=== PATIENT | female | born 1960 | race African-American/Black ===

== ENCOUNTER 2017-06-06 10:06 | Emergency (ER) | payer OTHER ==
[~2017-06-06] VITALS: Ht 170.2 cm; Wt 81.0 kg
[~2017-06-06 10:06] MED LIST: HYDR25TA4 PO
[2017-06-06 10:12] VITALS: TEMP 36.8; Ht 170.2 cm; Wt 81.0 kg
--- NOTE | 2017-06-06 11:08 | EMERGENCY ROOM VISIT NOTE ---
ED Visit Note First contact with patient: 10:53 CHIEF COMPLAINT: Left ear clogged HISTORY OF PRESENT ILLNESS: This 57-year-old female presents the ER with chief complain her left ear being clogged. The patient states that she was to see her PCP today for ear irrigation but they called her to cancel appointment since her doctor is out with the flu. The patient states that she has been using the wax softener drops for the past few days. The patient denies any ear pain. She states she just can't hear out of the left ear REVIEW OF SYSTEMS: 3 system review was performed and was negative unless stated otherwise in history of present illness. PMH: The patient is healthy; diabetes, hypertension SOCIAL HISTORY: Patient lives with her daughter. The patient denies any tobacco or alcohol use. PHYSICAL EXAM: Vital Signs: Were reviewed Reviewed Nurse's notes. GENERAL: 57- year-old female appears in no acute distress. MENTAL Status: Alert and oriented 3. EARS: Right canal clear. TMs good light reflex. Left canal with cerumen unable to visualize TM. EMERGENCY DEPARTMENT COURSE: The cerumen was removed with tap water irrigation delivered by an irrigating syringe. Following this the ear canals were seen to be slightly erythematous but the tympanic membranes were clear and not inflamed. DIAGNOSIS: Cerumen impaction of the left ear canal DISCHARGE INSTRUCTIONS & TREATMENT: Wash the ear canals frequently with water when you bathe in the future. Current/Historical Medications Scheduled Hydrochlorothiazide (Hctz), 25 MG PO DAILY Allergies Coded Allergies: No Known Allergies (Unverified , 12/18/15) Vital Signs Date Time Temp Pulse Resp B/P (MAP) Pulse Ox O2 Delivery O2 Flow Rate FiO2 06/06/17 10:12 36.8 87 18 136/88 96 Departure Information Referrals No Doctor, Assigned (PCP) Patient Instructions [facility]
[2017-06-06 11:14] VITALS: BP 131/81; PULSE 85; O2SAT 97
== END 2017-06-06 11:12 | disposition home or self-care (01) ==
LOC: C.EDB 10:07 → C.EDD 11:12
DX: H61.22 Impacted cerumen, left ear (principal); E11.9 Type 2 diabetes mellitus without complications; I10 Essential (primary) hypertension

== ENCOUNTER 2017-12-24 14:57 | Emergency (ER) | payer OTHER ==
[~2017-12-24] VITALS: Ht 167.6 cm; Wt 81.4 kg
[2017-12-24 15:08] VITALS: TEMP 37; Ht 167.6 cm; Wt 81.4 kg
[2017-12-24] MEDS: KETOROLAC TROMETHAMINE 60 MG/2 ML VIAL IM STA ×2 (15:40→16:16)
[2017-12-24] MEDS ORDERED: LIDODERM (LIDOCAINE) PATCH 5% TD STA (15:40)
[2017-12-24] MEDS ORDERED: ACETAMINOPHEN 500 MG TAB PO STA (16:19)
--- NOTE | 2017-12-24 16:25 | EMERGENCY ROOM VISIT NOTE ---
ED Visit Note First contact with patient: 15:30 CHIEF COMPLAINT: Shoulder pain, right leg pain, fall HISTORY OF PRESENT ILLNESS: This 57-year-old female patient presents to the emergency department, via ambulance, complaining of pain in the right shoulder and right acosta. The patient states she was getting onto the cat a bus when she slipped and fell, striking her right anterior acosta on the stair and injured the right shoulder while using the right arm to brace herself for the fall. There is no limitation of motion of the arm because of the pain, however the patient does have a history of rotator cuff injury and states she has a limited range of motion. Her range of motion is normal for her at this time. The pain is moderate, constant and increases with motion of the hand and arm. The patient states the pain is sharp and 7/10. The patient has taken no medications relief of the pain. No numbness or tingling. The patient also complains of right anterior acosta pain. She states she has been able to ambulate. There is no decreased range of motion of the knee or ankle. There is tenderness to palpation over the mid anterior acosta and medial aspect. The patient denies any previous injury. She denies any open wounds or bleeding. There is been no numbness or tingling of the lower extremity. No neck or back pain. No chest pain or shortness of breath. No abdominal pain or nausea/vomiting. No cough. The patient did not hit her head. REVIEW OF SYSTEMS: A 6 system review of systems was performed with positives and pertinent negatives in the HPI. ALLERGIES: None MEDICATIONS: Meclizine, hydrochlorothiazide PMH: Vertigo, hypertension, prediabetes, reflux SOCIAL HISTORY: The patient lives locally with family. She denies drug, alcohol , tobacco use PHYSICAL EXAM: Vital Signs: Reviewed nurse's notes, vital signs stable. GENERAL : This is a 57-year-old white female, in no acute distress, but appears to be in pain, well-developed, well-nourished. MUSCULOSKELETAL: There is no deformity in the contour of the right shoulder and there are no blair deformities noted. There is no sulcus sign. There is tenderness over the posterior aspect. The patient's range of motion is limited, but she reports this is baseline. Supraspinatus strength 5/5. There is no clavicle tenderness. No tenderness of the humerus, elbow, wrist, or hand. Processing Clerk strength 5/5. Radial pulse 2+. There is tenderness over the mid aspect of the right anterior acosta. There is also tenderness on the medial aspect. There is no obvious contusion or open wound, however there is a small superficial abrasion noted. There is no erythema or significant edema. The patient has full range of motion of the knee and ankle. Strength to resistance is 5/5. Dorsal pedal pulse 2+. NECK: No tenderness to palpation over the cervical spine. Supple, no lymphadenopathy. HEART: Regular rate and rhythm without murmurs gallops or rubs. LUNGS: Clear to auscultation bilaterally without wheezes, rales or rhonchi. No accessory muscle use. No retractions. NEURO: The patient is alert and oriented to person, place, and time. Normal sensation to light and sharp touch. Capillary refill less than 2 seconds. RADIOLOGY: R SHOULDER MIN 2 VIEWS ROUTINE HISTORY: 57 years-old Female right shoulder pain, fall acute right shoulder pain status post fall COMPARISON: None available TECHNIQUE: 3 views of the right shoulder FINDINGS: Mild glenohumeral and AC joint osteoarthritis. Marginal spurring of the acromium. No acute fracture or dislocation is identified. Imaged lung lynch appear clear. IMPRESSION: No acute fracture or dislocation. The above report was generated using voice recognition software. It may contain grammatical, syntax or spelling errors. Electronically signed by: Isac Portillo M.D. 12/24/2017 4:22 PM Dictated Date/Time: 12/24/2017 4:21 PM R TIBIA/FIBULA 2 VIEWS ROUTINE HISTORY: 57 years-old Female right acosta pain, fall acute right lower leg pain status post fall COMPARISON: None available TECHNIQUE: 2 views of the right tibia and fibula FINDINGS: Degenerative changes about the knee. Bone mineralization appears to be within normal limits. Small plantar opacified about the calcaneus. No acute fracture, dislocation or osteochondral defect. Soft tissues are within normal limits without opaque foreign body. Mild marginal spurring about the patellofemoral joint. IMPRESSION: No acute fracture or dislocation. The above report was generated using voice recognition software. It may contain grammatical, syntax or spelling errors. Electronically signed by: Isac Portillo M.D. 12/24/2017 4:23 PM Dictated Date/Time: 12/24/2017 4:22 PM EMERGENCY DEPARTMENT COURSE: I examined the patient. The patient was medicated with Lidoderm. She declined Toradol and requested Tylenol. An X-ray of the Right shoulder and right tip/fib was reviewed by myself and radiologist and shows no acute fracture or bony abnormality. I discussed the findings with patient at bedside. She was relieved and reports improvement in her symptoms. The patient was seen and evaluated by Dr. Perez. Discharge instructions reviewed, patient was discharged home in good condition. I attest that I have personally reviewed the patient's current medication list. Patient was found to have normal blood pressure on screening and does not require follow-up. Etiologies such as soft tissue injury, fracture, dislocation, neurovascular compromise, compartment syndrome, as well as others were entertained. DIAGNOSIS: Right shoulder strain, right lower extremity contusion The chart was completed utilizing [employer] Speech voice recognition software. Grammatical errors, random word insertions, pronoun errors, and incomplete sentences are an occasional consequence of this system due to software limitations, ambient noise, and hardware issues. Any formal questions or concerns about the content, text, or information contained within the body of this dictation should be directly addressed to the provider for clarification. (Birdie Khan, ANTONIA) First contact with patient: 15:30 The patient was seen and examined by myself in conjunction with the advanced care provider. I agree with the history, physical and findings as documented. X-rays reviewed without acute fracture. Continue outpatient follow-up physical therapy and utilize ice and rest as able to shoulder and leg. Please see their note for disposition and details. (Dominick Perez M.D.) Current/Historical Medications Scheduled Fish Oil (Dalton-3), 1 CAP PO DAILY Gabapentin (Neurontin), 300 MG PO TID Hydrochlorothiazide (Hctz), 25 MG PO DAILY Psyllium (Metamucil), 1 DOSE PO DAILY Allergies Coded Allergies: No Known Allergies (Unverified , 12/24/17) Vital Signs Date Time Temp Pulse Resp B/P (MAP) Pulse Ox O2 Delivery O2 Flow Rate FiO2 12/24/17 17:27 74 18 126/88 98 12/24/17 15:08 37.0 89 18 153/93 100 Room Air (Dominick Perez M.D.) Medications Administered Medications (Trade) Dose Ordered Sig/Saul Route Start Time Stop Time Status Last Admin Dose Admin Lidocaine (Lidoderm Patch 5%) 1 patch NOW STAT TD 12/24/17 15:40 12/24/17 15:41 DC 12/24/17 16:22 1 PATCH Acetaminophen (Tylenol Tab) 1,000 mg NOW STAT PO 12/24/17 16:19 12/24/17 16:20 DC 12/24/17 16:26 1,000 MG (Dominick Perez M.D.) Departure Information Impression Primary Impression: Fall Additional Impressions: Right shoulder strain Contusion of right lower leg, initial encounter Dispostion Home / Self-Care Condition GOOD Referrals Graciela Baker (PCP) Patient Instructions ED Contusion Lower Ext, ED Sprain Shoulder, [facility] Additional Instructions You were seen in the ED today after a fall. No fracture or obvious injury noted on x-rays. Ibuprofen(Motrin, Advil) may be used for fever or pain. Use 600mg every six hours as needed. Take with food. Avoid using more than 2400mg in a 24 hour period. Do not use 2400mg per day for more than three consecutive days without physician direction. Prolonged inappropriate use can lead to stomach upset or ulcers. (AND/OR) Acetaminophen(Tylenol) may be used for fever or pain. Use 1000mg every six hours as needed. Avoid using more than 3000mg in a 24 hour period. Ice compresses for 20 minutes at a time four times daily for 2-3 days. Rest and elevate your injury. Return to the ER immediately for any numbness, tingling, severe pain, extreme swelling in the extremity or as needed. Call your orthopedic surgeon if no improvement to arrange follow up for your injury. Follow-up with your primary care physician in 2 to 3 days for a recheck of your current condition. Problem Qualifiers Primary Impression: Fall Encounter type: initial encounter Qualified Codes: W19.XXXA - Unspecified fall, initial encounter Additional Impressions: Right shoulder strain Encounter type: initial encounter Qualified Codes: S46.911A - Strain of unspecified muscle, fascia and tendon at shoulder and upper arm level, right arm , initial encounter
[2017-12-24] MEDS ORDERED: OMEG10007 PO (16:52)
[2017-12-24] MEDS ORDERED: GABA-113 PO (16:52)
[2017-12-24] MEDS ORDERED: PSYL48.59 PO (16:52)
[2017-12-24 17:27] VITALS: BP 126/88; PULSE 74; O2SAT 98
== END 2017-12-24 17:28 | disposition home or self-care (01) ==
LOC: EDBD 14:57 → C.EDC 15:00
DX: S46.911A Strain of unspecified muscle, fascia and tendon at shoulder and upper arm level, right arm, initial encounter (principal); S80.11XA Contusion of right lower leg, initial encounter; V78.4XXA Person boarding or alighting from bus injured in noncollision transport accident, initial encounter; W22.8XXA Striking against or struck by other objects, initial encounter; Y93.89 Activity, other specified; Y99.8 Other external cause status; I10 Essential (primary) hypertension; Z79.899 Other long term (current) drug therapy